=== PATIENT | male | born 1950 | race Caucasian/White ===

== ENCOUNTER 2017-03-26 14:30 | Emergency (ER) | payer BC, MEDICARE ==
--- NOTE | 2017-03-26 15:37 | RAD ---
THREE VIEWS OF THE LEFT FOOT: 03/26/17 INDICATION: Fall down stairs with left foot injury. FINDINGS: There is a comminuted, mildly displaced fifth metatarsal base fracture. No additional acute fracture is evident. There is scattered osteoarthrosis. There is diffuse osteopenia. IMPRESSION: Fifth metatarsal base fracture. POS: [facility]
== END 2017-03-26 15:50 | disposition home or self-care (01) ==
LOC: ERS 14:30
DX: S92.352A Displaced fracture of fifth metatarsal bone, left foot, initial encounter for closed fracture (principal); E78.5 Hyperlipidemia, unspecified; K74.60 Unspecified cirrhosis of liver; F41.9 Anxiety disorder, unspecified; F17.220 Nicotine dependence, chewing tobacco, uncomplicated; F17.290 Nicotine dependence, other tobacco product, uncomplicated; Z79.899 Other long term (current) drug therapy; W10.9XXA Fall (on) (from) unspecified stairs and steps, initial encounter

== ENCOUNTER 2018-02-22 10:12 | Emergency (ER) | payer BC, MEDICARE ==
[2018-02-22 11:42] LABS: Band 25 % (5-11); Hemoglobin 14.9 g/dL (14.0-18.0); Lymphocytes 13 % (21-51); MDiff Complete? YES; Mean Corpuscular HGB CONC 34.6 g/dL (32.0-36.0); Mean Corpuscular Hemoglobin 34.1 pg (27.0-31.0); Mean Corpuscular Volume 98.4 fL (78.0-98.0); Mean Platelet Volume 9.1 fL (7.4-10.4); Metamyelocyte 1 % (0-0); Monocytes 4 % (0-10); Neutrophil 55 % (42-75); PLT Morphology Comment Appears Decreased; Platelet Count 98 thou/uL (130-400); RBC Distribution Width 11.5 % (11.5-14.5); Red Blood Cell (RBC) Count 4.37 mill/uL (4.70-6.10); Vacuoles SLIGHT
[2018-02-22] MEDS ORDERED: Clindamycin/D5W 900 mg/50 ml Premix Bag ONE (11:50)
[2018-02-22] MEDS ORDERED: Clindamycin/D5W 600 mg/50 ml Premix Bag ONE (11:54)
[2018-02-22 11:58] LABS: Albumin 3.8 g/dL (3.4-4.8)
[2018-02-22 12:00] LABS: Calcium 9.3 mg/dL (7.8-10.44); Chloride 104 mmol/L (98-107); Potassium 4.1 mmol/L (3.5-5.1); Sodium 134 mmol/L (136-145)
[2018-02-22 12:01] LABS: Globulin 3.1 g/dL (2.4-3.5); Glucose 96 mg/dL (80-115); Protein, Total 6.9 g/dL (5.8-8.1)
[2018-02-22 12:02] LABS: Anion Gap 11 mmol/L (10-20); Carbon Dioxide 23 mmol/L (23-31)
[2018-02-22 12:03] LABS: Bilirubin, Total 1.5 mg/dL (0.2-1.2)
[2018-02-22 12:04] LABS: Alkaline Phosphatase 46 U/L (40-150); Calc. Creatinine Clearance 0 mL/min (70-130); Estimated GFR-MDRD 89
[2018-02-22 12:05] LABS: BUN (Urea Nitrogen) 12 mg/dL (8.4-25.7)
[2018-02-22 12:06] LABS: AST (SGOT) 27 U/L (5-34)
[2018-02-22 12:07] LABS: ALT (SGPT) 28 U/L (8-55)
--- NOTE | 2018-02-22 13:06 | ULT ---
RIGHT LOWER EXTREMITY DOPPLER VENOUS ULTRASOUND: Date: 02/22/18 INDICATION: History of right lower extremity pain. TECHNIQUE: Clemons scale, color Doppler, and vascular duplex with spectral analysis was performed of the deep venou s structures of the right lower extremity. The common femoral vein, superficial femoral vein, proxima l greater saphenous vein, proximal greater profunda vein, popliteal, and posterior tibial veins were assessed. FINDINGS: There is appropriate compression, flow, and augmentation seen within the deep venous structures of th e right lower extremity. IMPRESSION: No evidence of deep venous thrombosis in the right lower extremity. POS: [facility]
== END 2018-02-22 13:16 | disposition home or self-care (01) ==
LOC: ERS 10:12
DX: L03.115 Cellulitis of right lower limb (principal); E78.5 Hyperlipidemia, unspecified; F41.9 Anxiety disorder, unspecified; F17.220 Nicotine dependence, chewing tobacco, uncomplicated; Z79.899 Other long term (current) drug therapy
CPT/HCPCS: 36415; 80053; 85025; 96365; J3490

== ENCOUNTER 2018-02-24 10:38 | Observation (INO) | payer BC, MEDICARE ==
[2018-02-24] MEDS ORDERED: Ibuprofen 200 MG TAB PO PRN (10:58)
[2018-02-24] MEDS ORDERED: Vancomycin HCl 1 GM in Premix Bag 1 BAG IVPB SCH (11:00)
[2018-02-24 12:07] LABS: Bilirubin Negative (Negative); Blood, Urine Negative (Negative); Clarity CLEAR (Clear); Glucose, Urine (Dipstick) Negative (Negative); Leukocyte Trace (Negative); Nitrite Negative (Negative); Protein, Urine (Dipstick) Negative (Neg-Trace); Specific Gravity, Urine 1.015 (1.002-1.036); Urobilinogen 0.2 mg/dL (0.2-1.0); pH, Urine 5.5 (5.0-9.0)
[2018-02-24 12:12] LABS: ALT (SGPT) 20 U/L (8-55); AST (SGOT) 20 U/L (5-34); Albumin 3.6 g/dL (3.4-4.8); Alkaline Phosphatase 45 U/L (40-150); Anion Gap 13 mmol/L (10-20); BUN (Urea Nitrogen) 14 mg/dL (8.4-25.7); Bilirubin, Total 1.1 mg/dL (0.2-1.2); Calc. Creatinine Clearance 0 mL/min (70-130); Calcium 8.9 mg/dL (7.8-10.44); Carbon Dioxide 19 mmol/L (23-31); Chloride 107 mmol/L (98-107); Estimated GFR-MDRD Greater than 90; Glucose 94 mg/dL (80-115); Potassium 4.2 mmol/L (3.5-5.1); Protein, Total 6.6 g/dL (5.8-8.1); Sodium 135 mmol/L (136-145)
--- NOTE | 2018-02-24 12:15 | RAD ---
THREE VIEWS RIGHT FORELEG: Indication: Right leg cellulitis. FINDINGS: There is prominent soft tissue swelling involving the medial and distal aspect of the right thigh as well as circumferentially enveloping the right foreleg. No radiopaque foreign body is evident. No acu te fracture is evident. IMPRESSION: Soft tissue swelling of the right leg. No acute fracture or subluxation. No radiopaque foreign body n oted. POS: [facility]
[2018-02-24 12:16] LABS: Bacteria/HPF None Seen HPF (None Seen); Hyaline Casts/LPF 0-3 HYALINE CAST LPF (0-3 Hyaline); RBC/HPF 0-3 HPF (0-3); Squamous Epithelial None Seen HPF (0-3); WBC/HPF 0-3 HPF (0-3)
[2018-02-24 12:17] LABS: #Eosinphils 0.2 thou/uL (0.0-0.7); #Lymphocytes 1.3 thou/uL (1.20-3.40); #Monocytes 0.6 thou/uL (0.11-0.59); #Neutrophils 3.5 thou/uL (1.40-6.50); %Basophils 0.4 % (0.0-1.0); %Eosinophils 3.5 % (0.0-10.0); %Lymphocytes 23.5 % (21.0-51.0); %Monocytes 10.6 % (0.0-10.0); Hemoglobin 12.7 g/dL (14.0-18.0); Mean Corpuscular HGB CONC 35.2 g/dL (32.0-36.0); Mean Corpuscular Hemoglobin 34.4 pg (27.0-31.0); Mean Corpuscular Volume 97.7 fL (78.0-98.0); Mean Platelet Volume 8.1 fL (7.4-10.4); PLT Morphology Comment Appears Decreased; Platelet Count 110 thou/uL (130-400); RBC Distribution Width 11.4 % (11.5-14.5); RBC Morphology Normal; White Blood Cell (WBC) Count 5.7 thou/uL (4.8-10.8)
--- NOTE | 2018-02-24 12:17 | RAD ---
THREE VIEWS RIGHT FOOT: Indication: Right lower extremity cellulitis. Comparison: None. FINDINGS: Lisfranc alignment is preserved. There is scattered osteoarthrosis of the midfoot and forefoot. No ac jon fracture or subluxation is evident. No radiopaque foreign body is noted. There is soft tissue swe lling involving the foreleg as well as the ankle. IMPRESSION: 1. Soft tissue swelling of the distal right foreleg, ankle and foot. 2. No radiopaque foreign body. 3. No acute fracture or subluxation. POS: [facility]
[2018-02-24] MEDS: Acetaminophen/Codeine 30-300mg Tablet PO PRN ×2 (12:37→19:33)
[2018-02-24] MEDS ORDERED: Vancomycin HCl 1.5 GM in Sodium Chloride 0.9% 250 ML 300 ML IVPB SCH (15:00)
[2018-02-24] MEDS: cefTRIAXone\\ROCEPHIN 1 GM in Sodium Chloride 0.9% 100 ML IVPB SCH (15:50)
[2018-02-24] MEDS: Atorvastatin Calcium 40 MG TAB PO SCH (19:35)
--- NOTE | 2018-02-24 21:20 | CON ---
DATE OF CONSULTATION: 02/24/2018 REASON FOR CONSULTATION: Cellulitis. HISTORY OF PRESENT ILLNESS: A 67-year-old patient who has a history of hyperlipidemia and liver cirrhosis and developed rapidly progressive inflammatory process right leg, came to the emergency room, has been admitted. Some subjective fever. No headaches, no visual symptoms, sore throat, odynophagia, dysphagia, no cough or sputum production or chest pain, no abdominal pain. PAST MEDICAL HISTORY: Includes liver cirrhosis, probably secondary to steatohepatitis, inguinal ventral hernia with prior repair, laparotomy with some form of bowel surgery, which required colostomy which was taken down later on, appendectomy, left shoulder replacement and bilateral hip replacements. SOCIAL HISTORY: Current smoker, never used alcoholic beverages. FAMILY HISTORY: Noncontributory. ALLERGIES: BACTRIM. CURRENT MEDICATIONS: Lipitor, lactulose, Protonix, vancomycin. PHYSICAL EXAMINATION: VITAL SIGNS: Temperature max 97.6, blood pressure 110/56, pulse 58, respirations 16, O2 sat 100. SKIN: Shows the area of cellulitis, right leg, was distributed with areas of erythema and distributed in a circumferential area below the right knee towards the foot before the patch-like distribution. No blisters noted. Quite homogeneous area of involvement. Underlying this, there seems to be evidence of stasis changes in the right and left lower extremities. No lymphadenopathy. HEENT: Noncontributory. NECK: Supple. LUNGS: Symmetric. Clear breath sounds. HEART: S1, S2, regular rate. No S3, S4. ABDOMEN: Soft, not distended or tender. No ascites. No bladder distention. Two areas of scabbing, which patient ascribes to stitches, they are trying to come out from his prior surgeries. EXTREMITIES: Pulses 1+ in popliteals and dorsalis pedis, 2+ edema in the right leg. NEUROLOGIC: Nonfocal including cognitive function. LABORATORY DATA: White cell count 5.7, hemoglobin 12.7, platelets 110 with normal differential. Sodium 135, creatinine 0.81. Liver profile normal. Albumin 3.6. Urinalysis was essentially normal. I do not see any cultures here and there is a tibia fibula x-ray, which demonstrated no areas of bone abnormalities. Vascular ultrasound with no evidence of deep vein thrombosis. ASSESSMENT: Liver cirrhosis, probably secondary to steatohepatitis with evidence of acute cellulitis, right leg. DISCUSSION: The most likely scenario is beta hemolytic streptococcus cellulitis. In patients with liver cirrhosis, gram negative lauren sometimes can play a role as well. We will transition patient to Rocephin, which should cover both possibilities. Discontinue remainder antimicrobials, eventual transition to oral Keflex. Once there is improvement, we will do discharge planning. Treat with Keflex for about 2 weeks and after that suppressive therapy with Pen-Vee K 250 twice daily for at least 6 months, compressive stockings to be worn for the next few months. MTDD
[2018-02-25] MEDS ORDERED: Vancomycin HCl 1.75 GM in Sodium Chloride 0.9% 500 ML IVPB SCH (01:00)
--- NOTE | 2018-02-25 03:04 | HP ---
DATE OF OBSERVATION: 02/24/2018 CHIEF COMPLAINT: Right lower leg cellulitis. HISTORY OF PRESENT ILLNESS: Patient is a 67-year-old male whose leg actually began to swell 5 days ago. He finally went to the emergency room at [facility] on 02/22/2018. There, he was evaluated and the redness, swelling, tenderness were noted and despite request to be put in as an inpatient for IV therapy. He was placed on clindamycin 300 mg t.i.d. and sent home. Since that time, his leg has continued to swell more in the heat, tenderness, and erythema have increased and his brings him in with day of observation for reevaluation since he is failing outpatient treatment on oral antibiotics. In the office, his leg is noted to be red, swollen, hot, tender. There is no weeping or open drainage. He is afebrile, but the area involved is extensive involving the whole top of the foot, all the way up to his knee at this point. There is no streaking noted. He has failed outpatient therapy. We will be admitted for IV therapy. We will also get Infectious Disease consult and hopefully be able to arrange eventual outpatient completion of his treatment. PAST MEDICAL AND SURGERY HISTORY: Complicated, fully decompensated cirrhotic in 2006, history of MRSA Staph infection, Dyslipidemia, Surgical Hx: bilateral hip replacements, laparotomies x2, colonoscopy with takedown, appendectomy, right shoulder replacement, I&D of ventral hernia, and ventral hernia repair due to ruptured bowel Psych: The patient has a psychiatric history of anxiety. SOCIAL HISTORY: He is , currently uses tobacco in a pipe form. Denies alcohol use or illicit drug use. ALLERGIES: BACTRIM, SULFA, and TRIMETHOPRIM. MEDICATIONS ON ADMISSION: Include iron 18 mg a day, lactulose 30 mL p.o. daily , ibuprofen 600 mg b.i.d., multiple vitamin, Protonix 40 mg daily, spironolactone 50 mg daily, Xanax 0.5 mg b.i.d., Zoloft 100 mg at bedtime, and atorvastatin 20 mg at bedtime. REVIEW OF SYSTEMS: Patient's report subjective fever, fatigue, and malaise generally. HEENT: Negative for eye discharge. No sores and ear, nose, or throat or pain. Chest: No trouble with cough or dyspnea. Cardiovascular: Denies palpitations or chest pain. GI: Denies nausea, vomiting, or diarrhea. Musculoskeletal: Significant for the right lower extremity edema, erythema, heat, tenderness with associated myalgias all over his body. Skin: The aforementioned hot, red, inflammation of the right lower extremity. Neurologic : No trouble with paresthesias, or hypesthesia. Genitourinary: No blood in urine or stool or polyuria or dysuria. Psychiatric: No trouble with mentation , depression, or anxiety at this time. PHYSICAL EXAMINATION: At the time of admission, VITAL SIGNS: Blood pressure 110/67, temperature 97, pulse 61, weight is 262 pounds. He is 5 foot 11 inches tall. GENERAL: This is a large obese male, alert, oriented, and cooperative. HEENT: Normocephalic and atraumatic. Pupils equal, round, and reactive to light. Extraocular muscles demonstrated to be intact. Pharynx clear. NECK: Supple, trachea midline. CHEST: Clear to auscultation. HEART: Regular rate and rhythm, no murmur. ABDOMEN: With diffuse scarring noted and some wound still healing with eschar noted in the central ventral supraumbilical area. Evidence of large previous hernia noted. : Deferred. EXTREMITIES: Right lower extremity with [id number] heat, erythema, tenderness, swelling, painful range of motion. Other extremities without clubbing, cyanosis, or edema. SKIN: With the aforementioned changes in the right lower extremity. The remainder of his skin is unremarkable. NEUROLOGIC: Cranial nerves are intact. Gait painful, cerebellar function intact. Sensory exam is intact. Mental status is at baseline, nonfocal, and intact. LABORATORY AND X-RAY FINDINGS: WBCs are 5.7, hemoglobin 12.7, hematocrit 36.2 with platelets at 110. Sodium 135, potassium 4.2, chloride 107, CO2 of 19, BUN 14, creatinine 0.81 with a GFR greater than 90, glucose 94. Liver functions unremarkable. Urinalysis trace leukocyte esterase, otherwise unremarkable. X- rays of the right lower extremity, failed to show any subcutaneous gas, but to confirm circumferential edema of the soft tissues. ASSESSMENT: 1. Right lower extremity cellulitis, failure to outpatient treatment. 2. Long history of multiple surgeries with complications and now history of methicillin-resistant Staphylococcus aureus positive for Staph. PLAN: Will be IV vancomycin 1 gram q.12. Pharmacy will do levels and adjust dosage as needed. Infectious Disease consultation to see if any additional antibiotics may be necessary. Case management consultation to help arrange outpatient treatment as such therapy and Wound Care consult to document the status of the wound and improvement. Pain management as needed and serial reevaluation. MTDD
[2018-02-25] MEDS: Acetaminophen/Codeine 30-300mg Tablet PO PRN ×2 (04:07→20:52)
[2018-02-25] MEDS: Spironolactone 25 MG TAB PO SCH (08:07)
[2018-02-25 09:16] LABS: #Eosinphils 0.3 thou/uL (0.0-0.7); #Lymphocytes 1.7 thou/uL (1.20-3.40); #Monocytes 0.6 thou/uL (0.11-0.59); #Neutrophils 3.5 thou/uL (1.40-6.50); %Basophils 0.8 % (0.0-1.0); %Eosinophils 4.4 % (0.0-10.0); %Lymphocytes 27.5 % (21.0-51.0); %Monocytes 10.2 % (0.0-10.0); %Neutrophils 57.2 % (42.0-75.0); Mean Corpuscular HGB CONC 35.7 g/dL (32.0-36.0); Mean Corpuscular Volume 97.9 fL (78.0-98.0); Mean Platelet Volume 8.1 fL (7.4-10.4); Platelet Count 130 thou/uL (130-400); RBC Distribution Width 11.3 % (11.5-14.5); Red Blood Cell (RBC) Count 3.73 mill/uL (4.70-6.10); White Blood Cell (WBC) Count 6.1 thou/uL (4.8-10.8)
[2018-02-25 09:32] LABS: Anion Gap 12 mmol/L (10-20); BUN (Urea Nitrogen) 9 mg/dL (8.4-25.7); Calc. Creatinine Clearance 156 mL/min (70-130); Calcium 8.9 mg/dL (7.8-10.44); Carbon Dioxide 25 mmol/L (23-31); Chloride 106 mmol/L (98-107); Estimated GFR-MDRD Greater than 90; Glucose 95 mg/dL (80-115); Potassium 3.8 mmol/L (3.5-5.1); Sodium 139 mmol/L (136-145)
[2018-02-25 13:33] VITALS: BMI 38.0
[2018-02-25] MEDS: cefTRIAXone\\ROCEPHIN 1 GM in Sodium Chloride 0.9% 100 ML IVPB SCH (16:31)
[2018-02-25] MEDS: Atorvastatin Calcium 40 MG TAB PO SCH (20:49)
[2018-02-26] MEDS: Acetaminophen/Codeine 30-300mg Tablet PO PRN ×2 (10:06→18:44)
[2018-02-26] MEDS: Spironolactone 25 MG TAB PO SCH (10:07)
[2018-02-26] MEDS ORDERED: Cephalexin 250 MG CAP PO SCH ×2 (15:30→21:00)
--- NOTE | 2018-02-26 19:56 | PRG ---
DATE OF SERVICE: 02/26/2018 SUBJECTIVE: Feeling better, about 50% improvement in cellulitis, right leg. No obvious adverse reac tions. PHYSICAL EXAMINATION: VITAL SIGNS: Normal. LUNGS: Clear. CARDIOVASCULAR: S1, S2, regular rate. MUSCULOSKELETAL: The right leg with about 50% reduction in the amount of cellulitis. LABORATORY DATA: White cell count 6.1, hemoglobin 13. Chemistry not remarkable. Microbiology with negative blood cultures. ASSESSMENT, DISCUSSION AND PLAN: Liver cirrhosis secondary to steatohepatitis with his acute celluli tis of right leg. The patient is currently on Rocephin. I would advise tomorrow to discharge on ora l Keflex 500 four times daily for 14 days. Compression stockings.
[2018-02-26] MEDS: Atorvastatin Calcium 40 MG TAB PO SCH (20:33)
[2018-02-27 05:04] LABS: #Basophils 0.1 thou/uL (0.0-0.2); #Eosinphils 0.2 thou/uL (0.0-0.7); #Lymphocytes 1.9 thou/uL (1.20-3.40); #Monocytes 0.5 thou/uL (0.11-0.59); %Basophils 0.7 % (0.0-1.0); %Eosinophils 2.5 % (0.0-10.0); %Lymphocytes 24.7 % (21.0-51.0); %Monocytes 5.9 % (0.0-10.0); %Neutrophils 66.3 % (42.0-75.0); Hemoglobin 12.8 g/dL (14.0-18.0); Mean Corpuscular HGB CONC 36.3 g/dL (32.0-36.0); Mean Corpuscular Hemoglobin 35.5 pg (27.0-31.0); Mean Corpuscular Volume 97.8 fL (78.0-98.0); Mean Platelet Volume 7.9 fL (7.4-10.4); Platelet Count 161 thou/uL (130-400); RBC Distribution Width 11.3 % (11.5-14.5); Red Blood Cell (RBC) Count 3.61 mill/uL (4.70-6.10); White Blood Cell (WBC) Count 7.6 thou/uL (4.8-10.8)
[2018-02-27 05:13] LABS: Anion Gap 11 mmol/L (10-20); BUN (Urea Nitrogen) 11 mg/dL (8.4-25.7); Calc. Creatinine Clearance 167 mL/min (70-130); Calcium 8.8 mg/dL (7.8-10.44); Carbon Dioxide 25 mmol/L (23-31); Chloride 105 mmol/L (98-107); Estimated GFR-MDRD Greater than 90; Glucose 106 mg/dL (80-115); Potassium 3.8 mmol/L (3.5-5.1); Sodium 137 mmol/L (136-145)
[2018-02-27 07:27] VITALS: BP 135/82; TEMP 98.3
== END 2018-02-27 07:53 | disposition home or self-care (01) ==
LOC: 2SW 10:38
PROVIDERS: ADMIT Specialist; ATTEND Specialist
DX: L03.115 Cellulitis of right lower limb (principal); E78.5 Hyperlipidemia, unspecified; K74.60 Unspecified cirrhosis of liver; K75.81 Nonalcoholic steatohepatitis (NASH); F17.200 Nicotine dependence, unspecified, uncomplicated; Z79.899 Other long term (current) drug therapy; Z88.2 Allergy status to sulfonamides
CPT/HCPCS: 36415; 80048; 80053; 81003; 81015; 85025; 87040; 87149; 96365; 96366; 96367; A4216; G0378; J0696; J3370; J7050; J7620

== ENCOUNTER 2018-09-03 15:27 | Emergency (ER) | payer BC, MEDICARE ==
[2018-09-03 15:51] LABS: #Eosinphils 0.2 thou/uL (0.0-0.7); #Lymphocytes 1.4 thou/uL (1.20-3.40); #Monocytes 0.7 thou/uL (0.11-0.59); %Basophils 0.6 % (0.0-1.0); %Eosinophils 3.6 % (0.0-10.0); %Lymphocytes 22.7 % (21.0-51.0); %Monocytes 10.4 % (0.0-10.0); %Neutrophils 62.6 % (42.0-75.0); Hemoglobin 15.3 g/dL (14.0-18.0); Mean Corpuscular HGB CONC 34.8 g/dL (32.0-36.0); Mean Corpuscular Hemoglobin 34.1 pg (27.0-31.0); Mean Platelet Volume 8.8 fL (7.4-10.4); Platelet Count 132 thou/uL (130-400); RBC Distribution Width 11.5 % (11.5-14.5); Red Blood Cell (RBC) Count 4.49 mill/uL (4.70-6.10); White Blood Cell (WBC) Count 6.3 thou/uL (4.8-10.8)
[2018-09-03 17:28] LABS: ALT (SGPT) 19 U/L (8-55); AST (SGOT) 33 U/L (5-34); Albumin 4.1 g/dL (3.4-4.8); Alkaline Phosphatase 41 U/L (40-150); Anion Gap 15 mmol/L (10-20); BUN (Urea Nitrogen) 8 mg/dL (8.4-25.7); Bilirubin, Total 1.1 mg/dL (0.2-1.2); Calc. Creatinine Clearance 0 mL/min (70-130); Calcium 9.5 mg/dL (7.8-10.44); Carbon Dioxide 24 mmol/L (23-31); Chloride 104 mmol/L (98-107); Estimated GFR-MDRD Greater than 90; Globulin 2.9 g/dL (2.4-3.5); Glucose 101 mg/dL (80-115); Potassium 4.3 mmol/L (3.5-5.1); Sodium 139 mmol/L (136-145)
--- NOTE | 2018-09-03 18:39 | CT ---
CT ABDOMEN AND PELVIS WITH IV CONTRAST 09/03/18 HISTORY: Epigastric abdominal pain/pressure and bloating since yesterday. History of cirrhosis. COMPARISON: 03/21/17. FINDINGS: The lung bases are clear. The stomach is distended and fluid filled. Dilated loops of small bowel are seen. The loops of small bowel measuring up to 4.5 cm in diameter and are predominantly fluid filled. An abrupt transition zon e is not visualized, but there are more decompressed loops of small bowel with gradual tapering to decompressed loops of small bowel. Suggestive of partial small bowel obstruction. There is colonic diverticulosis. Postsurgical changes with anastomosis at the rectosigmoid junction a re present. Superior pole right renal cyst is again present. The liver, spleen, pancreas, bilateral adrenal glands, and left kidney demonstrate a normal CT appear ance. The urinary bladder and pelvic structures are mostly obscured due to significant artifact from bilate ral total hip prostheses. Vascular calcifications are in the abdominal aorta involving the iliac garrett julio. Multilevel degenerative changes are seen throughout the spine with severe end plate degenerative fuentes ges at the L3-4 level, stable from prior exam. The fluid in the subcutaneous soft tissues in the midline upper pelvis are no longer visualized. Ther e is area of scarring in this region related to prior postsurgical change. IMPRESSION: 1. Evidence for partial small bowel obstruction. There is mild edema and fluid within the centra l mesentery. There are postsurgical changes in the lower left pelvis involving loops of small bowel w ith postsurgical changes involving the rectosigmoid junction as well. 2. Right renal cyst. POS: [facility]
--- NOTE | 2018-09-05 12:04 | EKG ---
Test Reason : Blood Pressure : / mmHG Vent. Rate : 069 BPM Atrial Rate : 069 BPM P-R Int : 190 ms QRS Dur : 096 ms QT Int : 398 ms P-R-T Axes : 044 -10 026 degrees QTc Int : 426 ms Normal sinus rhythm Normal ECG Confirmed by COOPER POPE DO ([id number]), editor magazine LINDA SAL ([id number]) on 09/05/2018 12:04:15 PM Referred By: Confirmed By:COOPER POPE DO
== END 2018-09-03 19:04 | disposition home or self-care (01) ==
LOC: ERS 15:27
DX: K59.00 Constipation, unspecified (principal); R14.0 Abdominal distension (gaseous); E78.5 Hyperlipidemia, unspecified; F41.9 Anxiety disorder, unspecified; F17.220 Nicotine dependence, chewing tobacco, uncomplicated; Z79.899 Other long term (current) drug therapy
CPT/HCPCS: 74018; 74177; 80048; 80053; 82550; 84484; 85025; 93005; J2060; J2405; S0028

== ENCOUNTER 2018-09-05 12:12 | Inpatient (IN) | payer BC, MEDICARE ==
[2018-09-05] MEDS ORDERED: Ondansetron PF 4 MG/2 ML Vial ONE (14:15)
[2018-09-05 14:19] LABS: #Basophils 0.1 thou/uL (0.0-0.2); #Eosinphils 0.2 thou/uL (0.0-0.7); #Lymphocytes 1.7 thou/uL (1.20-3.40); #Monocytes 0.6 thou/uL (0.11-0.59); #Neutrophils 3.8 thou/uL (1.40-6.50); %Basophils 1.5 % (0.0-1.0); %Eosinophils 3.8 % (0.0-10.0); %Lymphocytes 26.3 % (21.0-51.0); %Monocytes 9.1 % (0.0-10.0); %Neutrophils 59.4 % (42.0-75.0); Hemoglobin 14.3 g/dL (14.0-18.0); Mean Corpuscular HGB CONC 34.4 g/dL (32.0-36.0); Mean Corpuscular Volume 98.8 fL (78.0-98.0); Mean Platelet Volume 8.3 fL (7.4-10.4); Platelet Count 132 thou/uL (130-400); RBC Distribution Width 11.4 % (11.5-14.5); Red Blood Cell (RBC) Count 4.21 mill/uL (4.70-6.10); White Blood Cell (WBC) Count 6.3 thou/uL (4.8-10.8)
[2018-09-05] MEDS ORDERED: Lidocaine Viscous Sol 2% 15 ml UD Cup ONE (14:25)
[2018-09-05] MEDS ORDERED: Benzocaine 20% Spray 60 ML CAN ONE (14:29)
[2018-09-05 14:37] LABS: Anion Gap 15 mmol/L (10-20); BUN (Urea Nitrogen) 6 mg/dL (8.4-25.7); Calc. Creatinine Clearance 0 mL/min (70-130); Calcium 9.4 mg/dL (7.8-10.44); Carbon Dioxide 22 mmol/L (23-31); Chloride 105 mmol/L (98-107); Estimated GFR-MDRD Greater than 90; Glucose 101 mg/dL (80-115); Potassium 3.7 mmol/L (3.5-5.1); Sodium 138 mmol/L (136-145)
--- NOTE | 2018-09-05 15:49 | RAD ---
ABDOMEN ONE VIEW 09/05/18 HISTORY: NG tube placement for position evaluation. NG tube is noted with the tip extending into the stomach and the side hole is right at the GE junctio n region. This could probably be advanced another 5 to 8 cm so the side hole will completely enter th e stomach. Abnormally dilated small bowel loops, evidence for bowel obstruction. IMPRESSION: NG tube with the tip in the stomach and the side hole at the GE junction region. This could be advanc ed somewhat more completely into the stomach. Abnormally dilated small bowel. Evidence for small gris l obstruction. POS: [facility]
[2018-09-05 17:02] VITALS: BMI 36.1
[2018-09-05] MEDS ORDERED: Dextrose 5% in Water 1,000 ML IV PRN (23:28)
[2018-09-05] MEDS ORDERED: Ondansetron PF 4 MG/2 ML Vial IVP PRN (23:28)
[2018-09-05] MEDS ORDERED: Lorazepam 2 MG/ML VIAL SLOW IVP PRN (23:28)
[2018-09-05] MEDS ORDERED: Morphine 4 MG/ML VIAL SLOW IVP PRN ×2 (23:28)
[2018-09-05] MEDS ORDERED: hydrALAZINE 20 MG/ML VIAL SLOW IVP PRN (23:28)
[2018-09-05] MEDS ORDERED: Dextrose 50% Abboject 50 ML SYRINGE SLOW IVP PRN (23:28)
[2018-09-05] MEDS ORDERED: Promethazine HCl 25 MG/ML VIAL IM PRN (23:28)
[2018-09-06] MEDS: D5 1/2 NS w/20 mEq KCL 1,000 ML IV SCH ×4 (00:49→21:31)
[2018-09-06] MEDS: Nicotine 14 MG PATCH TD SCH (00:50)
[2018-09-06] MEDS: Famotidine/PF 20 mg/2ml Vial SLOW IVP SCH ×2 (08:47→21:30)
--- NOTE | 2018-09-06 09:17 | RAD ---
ABDOMEN 1 VIEW: Date: 09/06/18 HISTORY: Follow-up small bowel obstruction. COMPARISON: 09/05/18. FINDINGS: There is some gas and minimal fecal material throughout the colon. NG tube is in place. There are shannon e minimally dilated loops of small bowel, but less dilated and less distended than on the prior study . IMPRESSION: Persistent mildly dilated and distended small bowel loops, but showing definite improvement. Continue short-term follow-up. POS: [facility]
--- NOTE | 2018-09-06 23:15 | HP ---
CHIEF COMPLAINT: Abdominal pain, partial bowel obstruction. HISTORY OF PRESENT ILLNESS: Mr. Elias is a very pleasant 68-year-old white male well known to myself. I performed a complex giant ventral abdominal hernia repair with component separation and mesh placement with panniculectomy in 04/2014. In 05/2014, he was admitted to the hospital with what appeared to be a gallbladder attack. He had elevated liver function tests at that time and underwent an ERCP. Since he was shortly after his big surgery, wanted to avoid any other surgeries such as gallbladder surgery. He felt better after his ERCP and sphincterotomy and was discharged home and has had no subsequent gallbladder related problems. He developed sensation of pressure and pain in his upper abdomen about 4 or 5 days ago. He presented to the emergency room at that time. He had no episodes of nausea or vomiting. He did have dilated loops of small bowel. He also had some evidence of constipation. I recommended discharge home from the emergency room with magnesium citrate and MiraLAX at that time. He tells me that he took the magnesium citrate, had several bowel movements and felt better for a couple of days. Yesterday, he redeveloped his sensation of upper abdominal pain. He did not vomit. He re-presented to the emergency room. At that time, I evaluated his CT scan and felt that it was consistent with some degree of small bowel obstruction. Examination within the upper abdomen revealed some swirling of the mesenteric vessels and there were loops of small bowel that were almost 5 cm in diameter. So yesterday when I saw him in the emergency room, I recommended admission with placement of nasogastric tube to allow small bowel rest and decompression. He has had his nasogastric tube in place for almost 24 hours now. He tells me his belly feels better. He has been walking regularly and tolerating ice chips. He has had a total of mL of nasogastric drainage since he was admitted and he has been urinating regularly. PAST MEDICAL HISTORY: 1. Morbid obesity. 2. History of alcoholism. 3. History of cirrhosis. 4. History of gout. PAST SURGICAL HISTORY: 1. Appendectomy in 2009. 2. Vasectomy. 3. Bilateral hip replacement. 4. Sigmoid colectomy for perforated diverticulitis. 5. Colostomy creation and subsequent colostomy reversal. 6. Open ventral incisional hernia repair with component separation, mesh placement, and panniculectomy in 04/2014. 7. Shoulder surgery couple of years ago. MEDICATIONS: 1. Spironolactone. 2. Celebrex. 3. Lactulose. 4. Multivitamin. 5. Iron. ALLERGIES: SULFA MEDICATIONS. PRIMARY CARE PHYSICIAN: Dr. Marc Navarro. PERSONAL AND SOCIAL HISTORY: He is . He smokes a pipe and dips about one can of snuff per week. He denies alcohol or drug use. He has not had alcohol in 12 years. He is retired. He has 3 children. REVIEW OF SYSTEMS: Otherwise unremarkable. FAMILY HISTORY: Noncontributory. PHYSICAL EXAMINATION: VITAL SIGNS: Temperature is 98.1, pulse 57, and blood pressure 125/81. GENERAL: A well-developed, well-nourished, pleasant white male resting in bed, in no acute distress. He is alert and oriented x3. HEAD, EYES, EARS, NOSE, AND THROAT: Unremarkable. NECK: Supple without mass or tenderness. LUNGS: Clear to auscultation throughout. CARDIAC: Regular rate and rhythm without murmur. ABDOMEN: Soft, nontender, and nondistended. He has well-healed incisions on his abdomen. He has no evidence of hernia or focal tenderness. Bowel sounds are present and normoactive. RECTAL: Deferred at this time. LABORATORY DATA: His CBC yesterday revealed white blood cell count of 6.3, hemoglobin 14, and platelet count 132. Chemistry profile revealed essentially normal electrolytes, normal renal function, and normal glucose. His liver function tests on the were all normal as well. ASSESSMENT: The patient has some degree of obstructive phenomena within his abdomen producing discomfort and bowel dilatation seen on CT scan. The hope is to resolve this with nonoperative management. Nasogastric tube has been placed and is functioning well, also decompressed stomach. I recommended this for at least 24 hours. Tomorrow morning, I have requested a Gastrografin small-bowel study to evaluate his small bowel and check for residual dilatation and passage of contrast. Further management will depend upon findings of this study. Job ID: [id number]
[2018-09-07] MEDS: Nicotine 14 MG PATCH TD SCH (01:00)
[2018-09-07] MEDS: Famotidine/PF 20 mg/2ml Vial SLOW IVP SCH (08:20)
[2018-09-07] MEDS ORDERED: MD-Gastroview 120 ML BOT ONE (08:23)
[2018-09-07] MEDS: D5 1/2 NS w/20 mEq KCL 1,000 ML IV SCH ×2 (08:27→19:36)
--- NOTE | 2018-09-07 15:35 | RAD ---
SMALL BOWEL FOLLOW THROUGH: HISTORY: Bowel obstruction. FINDINGS: [employer] radiograph demonstrates bilateral hip arthroplasties. Suture material is seen in the pelvis. There is abnormal dilatation of the small bowel with dilated loops of mid small bowel seen. Gas is s een in the colon. There is an NG tube in good position. Gastrografin 750 mL was given orally. Overhead images were obtained. The stomach filled. The small bowel was moderately dilated. Over a 2-hour time period, the entire s mall bowel was visualized. Contrast was seen in the colon at 2 hours. The caliber of the small gris l did not significantly change after contrast reached the colon. A moderate amount of stool was seen in the ascending colon. IMPRESSION: Continued small bowel dilatation, possibly due to partial bowel obstruction. Contrast did reach the ascending colon by 2 hours. POS: [facility]
[2018-09-07 16:14] VITALS: BP 118/67; TEMP 97.4
--- NOTE | 2018-09-08 04:03 | DIS ---
DATE OF ADMISSION: 09/05/2018 DATE OF DISCHARGE: 09/07/2018 ADMISSION DIAGNOSIS: Small-bowel obstruction with abdominal pain. DISCHARGE DIAGNOSIS: Small-bowel obstruction with abdominal pain. OPERATIONS/PROCEDURES PERFORMED: None (imaging was obtained with a small bowel follow-through today using Gastrografin). ADMISSION HISTORY: The patient is a 68-year-old white male, who is known to myself from prior abdominal surgery. He presented with abdominal pain and evidence of a partial small-bowel obstruction. Nasogastric tube was placed and was functioning well. He was given bowel rest for a little over 24 hours and then this morning, a Gastrografin small-bowel follow-through was obtained. This showed that the contrast passed through uneventfully. It was in the colon by 2 hours. Shortly after that, he had numerous loose bowel movements. His nasogastric tube was removed and was started on a clear liquid diet. He has tolerated this nicely. He notes resolution of abdominal discomfort and feels well. Since admission, he has remained afebrile with normal vital signs. His laboratory examination upon admission was unremarkable and was not repeated. He is stable for discharge home at this time. I will see him in the future as needed. I instructed him to maintain a liquid diet for 48 hours and then advance his diet appropriately thereafter. There is no prescriptions and no followup with myself at this time. Job ID: [id number]
== END 2018-09-07 19:15 | disposition home or self-care (01) | DRG 390 ==
LOC: ERS 12:12 → SURG B 13:58
PROVIDERS: ADMIT Specialist; ATTEND Specialist
DX: K56.609 Unspecified intestinal obstruction, unspecified as to partial versus complete obstruction (principal)
CPT/HCPCS: 74018; 74177; 74250; 80048; 80053; 82550; 84484; 85025; 93005; 96361; 96374; J2060; J2405; Q9963; S0028

== ENCOUNTER 2018-11-23 19:43 | Inpatient (IN) | payer BC, MEDICARE ==
[2018-11-23 20:42] LABS: #Eosinphils 0.1 thou/uL (0.0-0.7); #Lymphocytes 1.2 thou/uL (1.20-3.40); #Monocytes 0.5 thou/uL (0.11-0.59); #Neutrophils 4.3 thou/uL (1.40-6.50); %Basophils 0.6 % (0.0-1.0); %Eosinophils 1.8 % (0.0-10.0); %Lymphocytes 18.8 % (21.0-51.0); %Monocytes 8.1 % (0.0-10.0); %Neutrophils 70.6 % (42.0-75.0); Hemoglobin 12.1 g/dL (14.0-18.0); Mean Corpuscular HGB CONC 34.2 g/dL (32.0-36.0); Mean Corpuscular Hemoglobin 34.1 pg (27.0-31.0); Mean Corpuscular Volume 99.8 fL (78.0-98.0); Mean Platelet Volume 8.6 fL (7.4-10.4); Platelet Count 97 thou/uL (130-400); RBC Distribution Width 11.8 % (11.5-14.5); Red Blood Cell (RBC) Count 3.54 mill/uL (4.70-6.10); White Blood Cell (WBC) Count 6.1 thou/uL (4.8-10.8)
--- NOTE | 2018-11-23 21:19 | CT ---
CT BRAIN: HISTORY: Cirrhosis. Liver failure. Syncope. COMPARISON: 12/12/2008 TECHNIQUE: Noncontrast enhanced CT images of the brain obtained from the base of the skull to the vertex. Brain and bone windows obtained. FINDINGS: Images demonstrate cortical atrophy, which is moderate to severe. This involves the frontal lobes an d cerebellum, less so involving the temporal lobes. There is gas seen in the paper wood cutter spaces bilaterally, as well as an abnormal pocket of gas seen in the central spinal canal, just posterior to the tip of the odontoid. I cannot exclude the possibilit y of gas in the neck or chest. Correlation with contrast enhanced CT of the chest and neck may be of use to further evaluate, if indicated. IMPRESSION: 1. No evidence of acute intracranial abnormalities. 2. Multiple pockets of soft tissue air/gas is present. POS: [facility]
[2018-11-23 21:53] LABS: Albumin 2.9 g/dL (3.4-4.8)
[2018-11-23 21:54] LABS: Chloride 114 mmol/L (98-107); Potassium 3.6 mmol/L (3.5-5.1); Sodium 141 mmol/L (136-145)
[2018-11-23 21:55] LABS: Calcium 7.6 mg/dL (7.8-10.44); Glucose 90 mg/dL (80-115)
[2018-11-23 21:56] LABS: Protein, Total 4.9 g/dL (5.8-8.1)
[2018-11-23 21:57] LABS: Anion Gap 12 mmol/L (10-20); Bilirubin, Total 0.7 mg/dL (0.2-1.2); Carbon Dioxide 19 mmol/L (23-31)
[2018-11-23 21:58] LABS: Alkaline Phosphatase 32 U/L (40-150)
[2018-11-23 21:59] LABS: BUN (Urea Nitrogen) 7 mg/dL (8.4-25.7); Calc. Creatinine Clearance 0 mL/min (70-130); Estimated GFR-MDRD Greater than 90
[2018-11-23 22:00] LABS: AST (SGOT) 13 U/L (5-34)
[2018-11-23 22:01] LABS: ALT (SGPT) 8 U/L (8-55); CK (CPK) 36 U/L (30-200)
[2018-11-23 22:24] LABS: Bilirubin Negative (Negative); Blood, Urine Negative (Negative); Clarity CLEAR (Clear); Glucose, Urine (Dipstick) Negative (Negative); Leukocyte Negative (Negative); Nitrite Negative (Negative); Protein, Urine (Dipstick) Negative (Neg-Trace); Specific Gravity, Urine 1.011 (1.002-1.036); Urobilinogen 0.2 mg/dL (0.2-1.0)
[2018-11-23] MEDS: Sodium Chloride 0.9% 1,000 ML IV SCH (23:41)
[2018-11-23 23:44] VITALS: BMI 33.8
[2018-11-23 23:49] LABS: Troponin I Less than 0.010 ng/mL (< 0.028)
[2018-11-24 03:15] LABS: Troponin I Less than 0.010 ng/mL (< 0.028)
[2018-11-24] MEDS: Sodium Chloride 0.9% 1,000 ML IV SCH ×5 (04:20→18:20)
[2018-11-24 09:24] LABS: #Basophils 0.1 thou/uL (0.0-0.2); #Eosinphils 0.1 thou/uL (0.0-0.7); #Lymphocytes 1.2 thou/uL (1.20-3.40); #Monocytes 0.4 thou/uL (0.11-0.59); #Neutrophils 3.1 thou/uL (1.40-6.50); %Basophils 1.3 % (0.0-1.0); %Eosinophils 2.5 % (0.0-10.0); %Lymphocytes 24.4 % (21.0-51.0); %Monocytes 8.2 % (0.0-10.0); %Neutrophils 63.6 % (42.0-75.0); Hemoglobin 12.6 g/dL (14.0-18.0); Mean Corpuscular HGB CONC 33.8 g/dL (32.0-36.0); Mean Corpuscular Hemoglobin 33.7 pg (27.0-31.0); Mean Corpuscular Volume 99.5 fL (78.0-98.0); Mean Platelet Volume 8.6 fL (7.4-10.4); Platelet Count 94 thou/uL (130-400); Red Blood Cell (RBC) Count 3.75 mill/uL (4.70-6.10); White Blood Cell (WBC) Count 4.9 thou/uL (4.8-10.8)
[2018-11-24 09:45] LABS: Anion Gap 9 mmol/L (10-20); BUN (Urea Nitrogen) 5 mg/dL (8.4-25.7); Calc. Creatinine Clearance 164 mL/min (70-130); Calcium 7.9 mg/dL (7.8-10.44); Carbon Dioxide 21 mmol/L (23-31); Chloride 115 mmol/L (98-107); Estimated GFR-MDRD Greater than 90; Glucose 85 mg/dL (80-115); Potassium 3.9 mmol/L (3.5-5.1); Sodium 141 mmol/L (136-145)
--- NOTE | 2018-11-24 11:38 | CT ---
CT Chest W Con History: [Pneumothorax. Syncopal episode.] Comparison: Chest radiograph 2017 Findings: Small right layering pleural effusion. No pericardial effusion. There is cholelithiasis. Bilateral gynecomastia. No pneumothorax. No effusion. No focal airspace consolidation. Mild bibasilar atelectatic changes. Right reversed total shoulder arthroplasty. No thoracic spine compression fracture. No acute displaced rib fracture. Clavicles are intact. Os acromiale on the right. Impression: 1. No pneumothorax. 2. No acute inflammatory process within the chest. 3. Cholelithiasis. 4. Heterogeneous attenuation of the liver likely artifactual due to the patient's arms being at her s ides. 5. Small perihepatic ascites is uncertain significance. Abdomen pelvis CT may be beneficial in this p atient if clinically warranted.
--- NOTE | 2018-11-24 12:06 | CT ---
Exam: POSTCONTRAST SOFT TISSUE NECK CT: HISTORY: Subcutaneous air noted on recent head CT. COMPARISON: None FINDINGS: Previously noted subcutaneous air in the right facial soft tissues has resolved. Visualized brain parenchyma is unremarkable. Prominence of the CSF spaces is once again noted and lik senia due to overall atrophy or subdural hygromas, incomplete evaluation on the current examination. Intact calvarium. Bilateral ocular lenses are appropriately located. Both globes are intact. Retrobulbar fat is preserv ed. Symmetric attenuation of the optic nerves and ocular rectus muscles Aerodigestive tract patent. No mucosal abnormality. Limited evaluation of the oral cavity due to dent al amalgam artifact. Midline fatty raphe of the tongue is preserved. Epiglottis has a normal caliber. Preepiglottic fat is preserved Effacement of the left piriform sinus likely due to benign apposition of mucosa. Direct visualization if clinically warranted. Symmetric attenuation of the parotid and submandibular glands. Symmetric attenuation of sternocleidomastoid muscle. No evidence of lymphadenopathy by size criteria. Atherosclerosis of the right carotid bifurcation and internal carotid artery is noted. Limited evalua tion due to technique. Cervical spine vertebral body height is maintained. No fracture. Varying degrees of central canal mayuri nosis and neural foraminal narrowing. Limited evaluation by technique Small bilateral effusions. Otherwise, visualized lung parenchyma and upper mediastinum are unremarkab le IMPRESSION: Resolution of previously noted gas in the right facial soft tissues. There is no evidence of subcutan eous emphysema or pneumothorax. Transcribed Date/Time: 11/24/2018 12:34 PM
--- NOTE | 2018-11-24 13:54 | HP ---
DATE OF OBSERVATION: Begins on 11/23/2018. CHIEF COMPLAINT: Multiple syncopal episodes, heat stroke, bradycardia, and dehydration. HISTORY OF PRESENT ILLNESS: The patient is a 68-year-old male, who was at a restaurant called [employer], and because they would not let him smoke his pipe indoors, he went out on the patio and spent several hours out there. He drank 2 O'Doul's and then began after a time frame to pass out and was found passed out down approximately 10 minutes. When EMS was called, they found him unresponsive, was finally able to arouse him and he was oriented x1. Initial blood pressure at the scene was 77/48. He was also noted to have a heart rate of 45. He was given fluid resuscitation on the way in, and on arrival to the emergency room, his pressure was able to systolically get into the 90s, but he remained bradycardic. In the emergency room, multiple liters of fluid were utilized to raise his blood pressure and finally obtain urine output. CT scan was ordered for altered mental status. It showed no acute findings, but did raise a suspicion of inappropriate soft tissue air in the upper chest and neck. PAST MEDICAL HISTORY: Significant for cirrhosis of the liver, hepatic encephalopathy, hyperlipidemia, high cholesterol, degenerative joint disease, alcoholism, gout, obesity. PAST SURGICAL HISTORY: Includes appendectomy in 2009; vasectomy; bilateral hip replacements, sigmoid colectomy for perforated diverticulitis; colostomy creation and subsequent colostomy reversal; open incisional hernia repair with component separation and mesh placement and panniculotomy in 04/2014; shoulder surgery in 2017. MEDICATIONS ON ADMISSION: Includes, 1. Spironolactone 25 mg q.a.m. 2. Celebrex 200 mg once a day. 3. Iron 18 mg daily. 4. Lactulose 30 mL p.r.n. 5. Daily multiple vitamins. 6. Daily MiraLAX. ALLERGIES: HE IS ALLERGIC TO SULFA. SOCIAL HISTORY: Currently, does not use alcohol. He still smokes a pipe. Long history of alcoholism in the past. PSYCHIATRIC HISTORY: Significant for anxiety. REVIEW OF SYSTEMS: CONSTITUTIONAL: At the time of admission, denies chills, fever, general malaise. HEENT: Denies drainage or sores in ears, nose, and throat. CHEST: Denies cough or shortness of breath. CARDIOVASCULAR: Denies palpitations or chest pain. GI: Denies nausea, vomiting, or diarrhea. : Denies dysuria or blood in urine or stool. MUSCULOSKELETAL: Has diffuse muscle aches and pains in his larger joints as a baseline. SKIN: No new rashes or lesions. NEUROLOGIC: He has altered mental status, and he has been having a repeated syncopal episode since discovered on the porch of the restaurant. PHYSICAL EXAMINATION AT THE TIME OF ADMISSION: VITAL SIGNS: On arrival, blood pressure 98/49, O2 saturation 100% on 2 L, pulse 57, respirations 16, pain scale 0. GENERAL: Elderly, responsive, cooperative male. HEENT: Normocephalic, atraumatic. Pupils are equal, round, and reactive to light. Extraocular muscles are intact. TMs nares are clear. Pharynx is dry. NECK: Supple. Trachea midline. No mass. CHEST: Clear to auscultation. HEART: Regular rate and rhythm. No murmur. ABDOMEN: Soft, nontender with hepatomegaly. No mass. : Deferred. EXTREMITIES: Without clubbing, cyanosis, or edema. Normal range of motion present. SKIN: Poor turgor. No acute lesions. NEUROLOGIC: Cranial nerves are intact. Unable to test gait and cerebellar function at this time. Sensory exam is grossly intact. Mental status is returning to baseline with hydration. IMAGING STUDIES: EKG showed sinus bradycardia with incomplete right bundle-branch block. First-degree AV block. ST segments are normal. T-waves are normal. CT of the head showed no evidence of acute intracranial abnormalities, but multiple pockets of soft tissue air and gas were present. LABORATORY DATA: WBCs 6.1, hemoglobin 12.1, hematocrit 35.4 with platelets at 97,000. Sodium 141, potassium 3.6, chloride 114, CO2 of 19, BUN 7, creatinine 0.79 with a GFR greater than 90. Alkaline phosphatase low at 32. Other liver functions normal. Troponin I is negative. BNP 28. ASSESSMENT: 1. Heat stroke. 2. Bradycardia. 3. Dehydration. 4. Multiple syncopal episodes with altered mental status secondary to heat stroke. 5. History of alcoholism. 6. Thrombocytopenia. PLAN: Plan will be continued hydration. CT of the chest and neck to evaluate the soft pockets of air noted on CT of the head. Continue fluid rehydration. We will also monitor his heart rate. I will keep him on telemetry and serially re-evaluate him. Job ID: [id number]
--- NOTE | 2018-11-24 18:11 | CON ---
DATE OF CONSULTATION: 11/24/2018 REASON FOR CONSULTATION: Syncope. HISTORY OF PRESENT ILLNESS: Mr. Elias is a very pleasant 68-year-old gentleman. The patient was outside with some friends at a restaurant for a couple of hours yesterday afternoon, it was very hot. He went outside, because he wanted to smoke his pipe and he could not smoke his pipe indoors. After a couple of hours, he started feeling weak and fatigued, finally lost consciousness. He said he could feel himself going down, just could not stop it. He was brought to the emergency room. He was found to be very dehydrated and also has a low heart rate. He had no chest pain. The patient has a history of liver disease. There are some notes in the chart of having cirrhosis. The patient thinks he does not have cirrhosis. The patient states he used to drink, but stopped 12 years ago. MEDICATIONS: At home was; 1. Spironolactone 25 mg a day. 2. Lactulose 30 mL every 2 days. 3. Multivitamin. 4. Iron. 5. Celebrex. 6. Polyethylene glycol. ALLERGIES: TO SULFA. REVIEW OF SYSTEMS: CONSTITUTIONAL: He says he still feels fuzzy in terms of his thinking. HEENT: Vision, no changes. Hearing, no changes. PULMONARY: No cough or wheezing. CARDIAC: Positive for syncope. No chest pain. GASTROINTESTINAL: No nausea, vomiting, or diarrhea. SKIN: No rashes. NEUROLOGIC: No unilateral weakness or numbness. PSYCHIATRIC: No unusual depression or anxiety. HEMATOLOGIC: No unusual bruising. GENITOURINARY: No burning urination. PHYSICAL EXAMINATION: GENERAL: This is a pleasant middle-aged gentleman, in no distress. VITAL SIGNS: Blood pressure 103/55, pulse is still low in the low 40s, it is sinus. HEENT: Eyes, sclerae nonicteric. Mouth, mucous membranes moist. NECK: Supple. No lymphadenopathy. LUNGS: Clear. No wheezing, rales, or rhonchi. CARDIAC: Normal S1, normal S2. He is bradycardic. I do not hear murmur, rub, or gallop. ABDOMEN: Soft and nontender. EXTREMITIES: Warm and dry. No clubbing or cyanosis. There is no edema. SKIN: Warm and dry. EKG reveals sinus bradycardia. PERTINENT LABORATORY DATA: Creatinine is 0.66 and potassium is 3.9. Cardiac enzymes are all less than 0.10. ASSESSMENT: 1. Syncope, likely related to volume depletion/dehydration with superimposed sinus bradycardia. 2. History of liver troubles? Cirrhosis. PLAN: 1. Continue intravenous fluids. We will reduce the rate. He should be hydrated by now. 2. Hold diuretics. 3. Check PT, PTT, and INR tomorrow to reassess the liver. 4. Check iron levels. 5. Echocardiogram. 6. The patient may ultimately need pacemaker insertion, but would like to evaluate his liver first. If he does have cirrhosis, there would be some increased risk of infection, long-term. Further recommendations following evaluation of his liver and echocardiogram tomorrow. Discussed pacemaker insertion, risks including bleeding, infection, air on the lung, lead dislodgement. He understands and wishes to proceed. If indicated, we will discuss it again if he needs pacemaker. Job ID: [id number]
[2018-11-24] MEDS: Nicotine 14 MG PATCH TOP SCH (18:18)
[2018-11-25 06:00] LABS: INR-International Normal Ratio 1.2; PTT 36.1 SEC (22.9-36.1)
[2018-11-25 06:12] LABS: Iron 43 ug/dL (65-175); Iron Binding Capacity, Total 206 mcg/dL (261-462)
[2018-11-25] MEDS: Sodium Chloride 0.9% 1,000 ML IV SCH (06:20)
--- NOTE | 2018-11-25 16:28 | PRG ---
DATE OF SERVICE: SUBJECTIVE: Mr. Elias is doing well overnight. His heart rate still getting low ever, sometimes in the low 30s. OBJECTIVE: LUNGS: Clear. CARDIAC: Normal S1 and normal S2. ABDOMEN: Soft and nontender. EXTREMITIES: No clubbing. No cyanosis. No edema. DIAGNOSTIC DATA: Echocardiogram shows normal left ventricular function, [id number] mitral and tricuspid insufficiencies. ASSESSMENT AND PLAN: 1. Symptomatic sinus bradycardia. 2. History of cirrhosis, but the coagulation studies were just barely out of the normal range. INR is 1.2. The patient is a reasonable candidate to proceed with pacemaker insertion. We will notify Dr. Harry. Job ID: [id number]
[2018-11-25] MEDS ORDERED: CeleCOXIB 100 MG CAP PO SCH (17:45)
[2018-11-25] MEDS: Nicotine 14 MG PATCH TOP SCH (17:59)
[2018-11-25] MEDS: Zolpidem Tartrate 5 MG TAB PO SCH (21:33)
[2018-11-26] MEDS ORDERED: CEFAZOLIN 2 GM in Premix Bag 1 BAG IVPB SCH (03:00)
[2018-11-26] MEDS: CeleCOXIB 100 MG CAP PO SCH (09:34)
[2018-11-26] MEDS ORDERED: CEFAZOLIN 1 GM VIAL ONE (09:49)
[2018-11-26] MEDS ORDERED: Gentamicin 80 MG/2 ML VIAL ONE (09:49)
[2018-11-26] MEDS ORDERED: Midazolam HCl 2 mg/2 ml Vial ONE ×2 (12:54→13:06)
[2018-11-26] MEDS ORDERED: Morphine 2 MG/ML SYRINGE ONE (13:22)
[2018-11-26] MEDS ORDERED: Acetaminophen/Codeine 30-300mg Tablet PO PRN (14:09)
--- NOTE | 2018-11-26 14:55 | RAD ---
Exam: Chest one view HISTORY:Status post cardiac device placement. Comparison: 03/21/2017 FINDINGS: Cardiac silhouette:Upper normal heart size. Aorta: Atherosclerosis Pacemaker: Interval placement of a left-sided transvenous pacemaker with lead positioned over the rig ht atrium and right ventricle. Pulmonary vessels: Normal Costophrenic angles: Clear LUNGS: No masses or consolidation. Pneumothorax: None Osseous abnormalities: None IMPRESSION: 1. Interval placement of left-sided transvenous pacemaker. 2. No pneumothorax.
[2018-11-26] MEDS: Nicotine 14 MG PATCH TOP SCH (17:03)
--- NOTE | 2018-11-26 18:21 | CCL ---
DATE OF PROCEDURE: 11/26/18 INDICATION: 68-year-old patient with symptomatic bradycardia with syncope. The patient was found to have symptomatic bradycardia with syncope. He was advised to undergo dual ch jenny pacemaker insertion. He was taken to the cardiac labor economics teacher where he was prepped and draped in the sterile fashion and under went the procedure without difficulties or complications. A full dictated note is already in the neptali t. He was implanted with an MRI compatible device from [employer] with two screw-in leads. One in the atrium and one in the ventricle. There are no complications or difficulties encountered. He was give n IV Versed and morphine for the procedure and throughout the procedure was monitored by an independe nt observer present for heart rate, blood pressure, and O2 saturations. Total sedation time was appro ximately 30 minutes. Pacemaker was set with the upper rate at 130 and the lower rate was set at 60.
[2018-11-26] MEDS: Zolpidem Tartrate 5 MG TAB PO SCH (21:14)
[2018-11-27] MEDS: CeleCOXIB 100 MG CAP PO SCH (09:44)
[2018-11-27 10:39] VITALS: BP 128/72; TEMP 98.5
--- NOTE | 2018-11-28 09:16 | EKG ---
Test Reason : S/P PACEMAKER Blood Pressure : / mmHG Vent. Rate : 060 BPM Atrial Rate : 058 BPM P-R Int : 000 ms QRS Dur : 154 ms QT Int : 472 ms P-R-T Axes : 000 -78 084 degrees QTc Int : 472 ms AV dual-paced rhythm with prolonged AV conduction Abnormal ECG When compared with ECG of 23-NOV-2018 19:44, (Unconfirmed) Electronic ventricular pacemaker has replaced Sinus rhythm Confirmed by PONCE BARGER, DR. Khan ([id number]) on 11/28/2018 9:16:13 AM Referred By: DIONI Confirmed By:DR. Erin SERRA MD
--- NOTE | 2018-11-28 11:22 | EKG ---
Test Reason : BRADYCARDIA Blood Pressure : / mmHG Vent. Rate : 058 BPM Atrial Rate : 058 BPM P-R Int : 000 ms QRS Dur : 096 ms QT Int : 456 ms P-R-T Axes : 022 -03 020 degrees QTc Int : 447 ms Sinus bradycardia with 1st degree A-V block Incomplete right bundle branch block Borderline ECG Confirmed by REJI BARGER, ROSALBA Carson ([id number]), assignment editor LINDA SAL ([id number]) on 11/28/2018 11:22:09 AM Referred By: Confirmed By:ROSALBA MENDOZA MD
== END 2018-11-27 10:45 | disposition home or self-care (01) | DRG 243 ==
LOC: ERS 19:43 → 2SW 23:30 → OBSVTOIN 11-25 17:19 → 2NO 11-25 20:28
PROVIDERS: ADMIT Specialist; ATTEND Specialist
PROC: 0JH606Z Insertion of Pacemaker, Dual Chamber into Chest Subcutaneous Tissue and Fascia, Open Approach (ICD-10-PCS; principal; 2018-11-26)
PROC: 02H63JZ Insertion of Pacemaker Lead into Right Atrium, Percutaneous Approach (ICD-10-PCS; 2018-11-26)
PROC: 02HK3JZ Insertion of Pacemaker Lead into Right Ventricle, Percutaneous Approach (ICD-10-PCS; 2018-11-26)
DX: R00.1 Bradycardia, unspecified (principal); T67.0XXA Heatstroke and sunstroke, initial encounter; E86.0 Dehydration; D69.6 Thrombocytopenia, unspecified; E78.5 Hyperlipidemia, unspecified; E66.9 Obesity, unspecified; M10.9 Gout, unspecified; R55 Syncope and collapse; Z96.643 Presence of artificial hip joint, bilateral; Z90.49 Acquired absence of other specified parts of digestive tract; Z98.52 Vasectomy status; Z88.2 Allergy status to sulfonamides; Z68.34 Body mass index [BMI] 34.0-34.9, adult
CPT/HCPCS: 33208; 36415; 70450; 70491; 71045; 71260; 80048; 80053; 81003; 82550; 82728; 83540; 83550; 83605; 83880; 84484; 85025; 85610; 85730; 93005; 93010; 93306; 96360; 99152; 99153; C1785; C1898; J0690; J1580; J2250; J2270

== ENCOUNTER 2019-01-16 10:34 | Inpatient (IN) | payer BC, MEDICARE ==
--- NOTE | 2019-01-16 10:57 | RAD ---
EXAM: Chest Two Views 01/16/2019 10:54 AM HISTORY: Concern for pacemaker infection COMPARISON: November 02, 2014 FINDINGS: Heart: Normal in size and contour. Pulmonary vessels: Normal. Costophrenic angles: Clear. Lungs: No confluent pneumonia, overt edema, pleural effusion, or other acute process. Pneumothorax: None. Osseous structures:Right total shoulder replacement is unchanged. Additional findings: Dual-lead pacemaker is unchanged from a single view chest radiograph compariso n dated November 26, 2018. IMPRESSION: No significant acute intrathoracic disease.
[2019-01-16 12:07] LABS: #Basophils 0.1 thou/uL (0.0-0.2); #Eosinphils 0.2 thou/uL (0.0-0.7); #Lymphocytes 1.6 thou/uL (1.20-3.40); #Monocytes 0.5 thou/uL (0.11-0.59); %Basophils 1.5 % (0.0-1.0); %Eosinophils 3.1 % (0.0-10.0); %Lymphocytes 29.4 % (21.0-51.0); %Monocytes 9.8 % (0.0-10.0); %Neutrophils 56.2 % (42.0-75.0); Hemoglobin 14.8 g/dL (14.0-18.0); Mean Corpuscular HGB CONC 35.3 g/dL (32.0-36.0); Mean Corpuscular Hemoglobin 34.3 pg (27.0-31.0); Mean Corpuscular Volume 97.1 fL (78.0-98.0); Mean Platelet Volume 8.6 fL (7.4-10.4); Platelet Count 115 thou/uL (130-400); RBC Distribution Width 11.9 % (11.5-14.5); White Blood Cell (WBC) Count 5.3 thou/uL (4.8-10.8)
[2019-01-16 12:24] LABS: ALT (SGPT) 11 U/L (8-55); AST (SGOT) 19 U/L (5-34); Albumin 3.9 g/dL (3.4-4.8); Alkaline Phosphatase 39 U/L (40-150); Anion Gap 12 mmol/L (10-20); BUN (Urea Nitrogen) 7 mg/dL (8.4-25.7); Bilirubin, Total 0.8 mg/dL (0.2-1.2); Calc. Creatinine Clearance 0 mL/min (70-130); Calcium 9.8 mg/dL (7.8-10.44); Carbon Dioxide 26 mmol/L (23-31); Chloride 107 mmol/L (98-107); Estimated GFR-MDRD Greater than 90; Globulin 2.7 g/dL (2.4-3.5); Glucose 94 mg/dL (80-115); Protein, Total 6.6 g/dL (5.8-8.1); Sodium 141 mmol/L (136-145)
[2019-01-16] MEDS ORDERED: Piperacillin/Tazobactam 4.5 GM VIAL ONE (12:46)
[2019-01-16] MEDS ORDERED: Clindamycin/D5W 900 mg/50 ml Premix Bag ONE (12:47)
[2019-01-16] MEDS ORDERED: Sodium Chloride 0.9% 1,000 ML IV SCH (15:47)
[2019-01-16] MEDS ORDERED: HYDROcodone/Acetaminophen 5/325 mg Tablet PO PRN ×2 (15:47)
[2019-01-16] MEDS ORDERED: Acetaminophen 325 MG TAB PO PRN ×2 (15:47→17:53)
[2019-01-16] MEDS ORDERED: Ondansetron ODT 4 MG TAB SL PRN (15:47)
[2019-01-16] MEDS ORDERED: Ondansetron PF 4 MG/2 ML Vial IVP PRN ×2 (15:47→17:54)
[2019-01-16 16:09] VITALS: BMI 32.3
[2019-01-16] MEDS ORDERED: Piperacillin/Tazobactam 4.5 GM in Sodium Chloride 0.9% 100 ML IVPB SCH (18:00)
[2019-01-16] MEDS ORDERED: Clindamycin/D5W 900 MG in Premix Bag 1 BAG IVPB SCH (20:00)
[2019-01-16] MEDS: Piperacillin/Tazobactam 4.5 GM in Sodium Chloride 0.9% 100 ML IVPB SCH ×2 (20:06→23:39)
--- NOTE | 2019-01-16 21:08 | CON ---
DATE OF CONSULTATION: 01/16/2019 INDICATION FOR CONSULTATION: This is a 68-year-old gentleman, who recently underwent a pacemaker insertion, I believe on November 27, due to episode of syncope and sick-sinus syndrome with symptomatic bradycardia. He had no complications or difficulties after the pacemaker was inserted, but yesterday or today his noticed he had a small little blister around the lateral side of the pacemaker incision site and she had extruded a small amount of pus since he was taken to the emergency room. He has had problems like this in the past apparently on previous surgery with some reaction apparently to the sutures, which also formed little blisters and then partial small portions of the suture had to be removed. Unfortunately, he failed to explain this to us prior to undergoing the pacemaker insertion, but otherwise has remained relatively stable. He has had no other problems. He has had no syncopal episodes and overall I assume that the pacemaker function has been normal. He has had no further episodes of syncope or lightheadedness. PAST MEDICAL HISTORY: Please refer to the notes dictated by my nurse practitioner. SOCIAL HISTORY: Please refer to the notes dictated by my nurse practitioner. FAMILY HISTORY: Please refer to the notes dictated by my nurse practitioner. REVIEW OF SYSTEMS: Please refer to the notes dictated by my nurse practitioner. MEDICATIONS: Please refer to the notes dictated by my nurse practitioner. ALLERGIES: HE IS ALLERGIC TO SULFA MEDICATIONS. PHYSICAL EXAMINATION: GENERAL: Reveals a well-developed, well-nourished gentleman, who is in no acute distress at this time. He is alert, oriented. VITAL SIGNS: Stable. Blood pressure is slightly elevated at 145/90. He is afebrile. Heart rate is 80, respiratory rate is 16. HEENT: Unremarkable. CHEST: Clear to auscultation. CARDIOVASCULAR: Reveals a regular rate and rhythm at this time. No significant murmurs, heaves, thrills, bruits, or rubs. There is a very small area of erythema and small ulceration where the small blister was opened this morning by the patient's and she says she extruded a small amount of pus from this area and actually this is only a very small area, not much bigger than the actual site, is less than half a millimeter in diameter, but there is some erythema around the lateral side of the pacemaker site incision. Otherwise is nontender and there is no fluctuation there. ABDOMEN: Unremarkable. EXTREMITIES: No clubbing, cyanosis, or edema. NEUROLOGIC: The patient is fully intact. There are no gross focal motor deficits. SKIN: Warm and dry otherwise. LABORATORY DATA: Hemoglobin of 14.8, WBC of 5.3, platelet count of 115,000. His chemistries are all normal. Creatinine 0.78. His chest x-ray is also unremarkable. There were no acute abnormalities noted. At this time, we will continue to follow the patient. IMPRESSION AND PLAN: Small infection in the incision site, status post pacemaker insertion. The patient may have an allergy to the material that was used to close the wound, it seems to be some type of reaction. We will continue to follow this very carefully. reaction to the suture material, the whole wound may dehisce and may require removal of the pacemaker as well as replacement on the opposite side depending on his progress, he is on antibiotics at this time and I would agree with the present management. Otherwise, from a cardiac standpoint, the patient is doing well and we are more than happy to continue to follow the patient with you throughout his hospital course. His medications prior to admission included Aldactone, lactulose, multivitamins, iron, Celebrex, and polyethylene glycol. He has some history of liver disease, but the patient denies any significant history of cirrhosis. He will be seen I believe by Dr. Talley on this admission. At this time, he is on clindamycin as well as piperacillin and vancomycin. Job ID: [id number]
[2019-01-16] MEDS: Clindamycin/D5W 900 MG in Premix Bag 1 BAG IVPB SCH (21:23)
[2019-01-16] MEDS: Vancomycin HCl 1.5 GM in Sodium Chloride 0.9% 250 ML 300 ML IVPB SCH (23:49)
[2019-01-16] MEDS ORDERED: Vancomycin HCl 1 GM in Premix Bag 1 BAG IVPB SCH (23:59)
[2019-01-17] MEDS: Clindamycin/D5W 900 MG in Premix Bag 1 BAG IVPB SCH ×2 (05:18→15:36)
[2019-01-17] MEDS: Piperacillin/Tazobactam 4.5 GM in Sodium Chloride 0.9% 100 ML IVPB SCH ×4 (06:30→23:06)
[2019-01-17 07:14] LABS: #Basophils 0.1 thou/uL (0.0-0.2); #Eosinphils 0.2 thou/uL (0.0-0.7); #Lymphocytes 1.6 thou/uL (1.20-3.40); #Monocytes 0.5 thou/uL (0.11-0.59); #Neutrophils 3.2 thou/uL (1.40-6.50); %Basophils 1.5 % (0.0-1.0); %Eosinophils 4.3 % (0.0-10.0); %Lymphocytes 28.5 % (21.0-51.0); %Monocytes 9.6 % (0.0-10.0); %Neutrophils 56.1 % (42.0-75.0); Hemoglobin 13.7 g/dL (14.0-18.0); Mean Corpuscular HGB CONC 34.9 g/dL (32.0-36.0); Mean Corpuscular Hemoglobin 34.2 pg (27.0-31.0); Platelet Count 107 thou/uL (130-400); RBC Distribution Width 12.1 % (11.5-14.5); Red Blood Cell (RBC) Count 4.01 mill/uL (4.70-6.10); White Blood Cell (WBC) Count 5.7 thou/uL (4.8-10.8)
[2019-01-17] MEDS: CeleCOXIB 100 MG CAP PO SCH (08:40)
[2019-01-17] MEDS: Multivit, Therapeutic 1 TAB PO SCH (08:40)
[2019-01-17] MEDS: Vancomycin HCl 1.5 GM in Sodium Chloride 0.9% 250 ML 300 ML IVPB SCH (12:57)
--- NOTE | 2019-01-17 14:17 | HP ---
CHIEF COMPLAINT: Suture reaction to pacemaker site as well as secondary cellulitis. HISTORY OF PRESENT ILLNESS: The patient is a 68-year-old male, who on November 27 had his syncopal episode and sick sinus syndrome with symptomatic bradycardia. Two weeks ago, he underwent pacemaker placement with Dr. Harry. Then, on the day of admission prior to admission, he had a small blister developed on the edge of his incision site for the pacemaker. His investigated with this further and with lateral pressure expressed pus, at which time her concern sent him to the emergency room, where his vital signs were stable. There had been no fevers. Lab looked good, but he did have bethany pus coming from the incision site. Cultures were taken of the blood and of the actual discharge at which point, Dr. Navarro was contacted to put him in the hospital for further antibiotics until he can be further evaluated by Dr. Harry and Dr. Talley and the cellulitis could be actively treated. Since the pacemaker placement, he has had no further episodes of syncope, lightheadedness, or weakness. PAST MEDICAL HISTORY: Last hospitalization was November 23, 2018 for the aforementioned heat stroke, bradycardia, and dehydration. Prior to that, he had cirrhosis of the liver, hepatic encephalopathy, hyperlipidemia, high cholesterol, degenerative joint disease, alcoholism, gout, and obesity. PAST SURGICAL HISTORY: His prior surgical experience included an appendectomy in 2009, vasectomy, bilateral hip replacement, at which time he went home after the hip replacement and due to significant constipation, his bowels ruptured. He came back in, had a colostomy. They called it a perforated diverticula, for which he had a sigmoid colectomy and then colostomy, but he had a reaction to the incisional suture, at which time he was opened back up and incisional hernia repair was then performed with mesh placement and repair in April 2014, and shoulder surgery in 2016. MEDICATIONS ON ADMISSION: Include, 1. Spironolactone 25 mg q.a.m. 2. Celebrex 200 mg daily. 3. Iron 18 mg daily. 4. Lactulose 30 mL daily. 5. Multiple vitamin daily. 6. Daily MiraLAX. ALLERGIES: TO SULFA AND SUTURES. REVIEW OF SYSTEMS: CONSTITUTIONAL: At the time of admission, denies fever, chills, or fatigue. HEENT: Denies drainage from eyes, ears, nose, or throat or pain. CHEST: Denies dyspnea or cough. CARDIOVASCULAR: Denies palpitations or chest pain. GI: Denies nausea, vomiting, or diarrhea. : Denies dysuria or blood in urine or stool. MUSCULOSKELETAL: Has diffuse aches and pains in his major joints, but these are not new. SKIN: The incisional rupture with production of pus in the left chest wall where his pacemaker was placed. Circumferential erythema, heat, and tenderness are noted. NEUROLOGIC: Mental status is clear. No hypoesthesia or anesthesia noted. PHYSICAL EXAMINATION: VITAL SIGNS: On admission, blood pressure 138/91, pulse 85, respirations 16, temperature 98.3, pain at 0, O2 saturation 99% on room air. GENERAL: This is a well-developed, well-nourished, obese male, alert, oriented, and cooperative, in no acute distress. HEENT: Normocephalic, atraumatic. Pupils are equal, round, and reactive to light. Extraocular muscles are intact. TMs, nares, and pharynx are clear. NECK: Supple. Trachea midline. CHEST: Clear to auscultation. Incision site noted with erythema, heat tenderness, and swelling noted. Clear serosanguineous fluid oozing from the site at this time. HEART: Regular rate and rhythm without murmur. ABDOMEN: Soft, nontender without hepatosplenomegaly. : Deferred. EXTREMITIES: Without clubbing, cyanosis, or edema. Normal range of motion is present. SKIN: Without rashes or lesions, except for the incisional infection in the left side of the chest wall where the pacemaker is placed, oozing serosanguineous fluid with surrounding erythema, heat, and tenderness. NEUROLOGIC: Cranial nerves are intact. Gait and cerebral function are not tested. Sensory exam is grossly intact. Mental status is at baseline. LABORATORY DATA: Lab work thus far shows WBCs at 5.3, hemoglobin 14.8, hematocrit 41.7 with platelets at 115. Sodium is 141, potassium 4.0, chloride 107, CO2 of 26, BUN 7, creatinine 0.7 with a GFR greater than 90. Lactic acid of 1.5. Liver functions normal. Troponins normal. IMAGING STUDIES: Chest x-ray, no significant acute intrathoracic disease. ASSESSMENT: 1. Cellulitis, left chest wall from pacemaker insertion site. 2. Suture reaction, probable cause to cellulitis of the above. 3. Status post pacemaker insertion for sick sinus syndrome, syncope, and symptomatic bradycardia. 4. History of cirrhosis. PLAN: Plan will be to continue IV antibiotics. Infectious Disease consultation , Dr. Harry has also been consulted and seen the patient, and serial re-evaluation will be performed. A day after beginning of antibiotics, he is already showing decreased erythema, decrease heat, decreased tenderness at the incision site. Cultures are still pending. Job ID: [id number] MTDD
--- NOTE | 2019-01-17 17:28 | PDOC.CTH ---
Cardiology Progress Note - Subjective The pt seen and examined. No overnight events. No cardiac complaints. - Objective Vital Signs Temp Pulse Resp BP BP Pulse Ox 01/17/19 15:16 97.3 F L 70 18 133/84 99 01/17/19 12:00 97.2 F L 80 16 123/80 99 01/17/19 08:40 98 01/17/19 07:39 97.4 F L 60 14 120/80 98 Weight 225 lb 01/16/19 01/17/19 01/18/19 06:59 06:59 06:59 Intake Total 1080 Balance 1080 - Physical Examination General/Neuro: alert & oriented x3 Neck: no JVD present Lungs: CTA Heart: RRR Abdomen: soft Extremities: other: (No edema; mild erhythema to Lt upper chest) - Labs Result Diagrams: 01/17/19 06:26 01/16/19 11:53 Troponin/CKMB Troponin I Less than 0.010 ng/mL (< 0.028) 01/16/19 11:53 - Assessment/Plan 1. Cellulitis to Lt PM site 2/2 inner suture reaction - the erythema the site has been smaller; The pt stated the tenderness to the site resolved now; on IV ABX, which managed by PCP and Dr Talley 2. PM placement in 11/2018 2/2 SSS 3. possible hx of Liver cirrhosis 4. hx of ETOH abuse MAR reviewed Pt. seen and eval. by me. I agree with the A/P by the SECRETARY ADMINISTRATIVE ASSISTANT. The infected area appears improved. Dr. Talley to eval. It does not appear to be an infected pacemaker wound.gjm Review of Systems - Review of Systems Constitutional: reports: no symptoms reported EENTM: reports: no symptoms reported Respiratory: reports: no symptoms reported Cardiac (ROS): reports: no symptoms reported ABD/GI: reports: no symptoms reported : reports: no symptoms reported Musculoskeletal: reports: no symptoms reported
[2019-01-17 23:36] LABS: Vancomycin, Trough 18.3 ug/mL
--- NOTE | 2019-01-17 23:39 | CON ---
DATE OF CONSULTATION: 01/17/2019 REASON FOR CONSULTATION: Possible pacemaker site infection. 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 Harry. The day before admission, he developed what he describes as a small blister. He initially noticed that because the shirt was rubbing against his chest wall and was causing pain. His reportedly expressed purulent exudate from one of the edges of the incision. The incision itself has healed completely and there is no evidence of dehiscence at this point in time. The patient has been started on broad-spectrum coverage and there has been improvement. No more tenderness at the site. No headaches, visual symptoms, sore throat, odynophagia, or dysphagia. No cough or sputum production. No chest pain. No dyspnea. No abdominal pain or diarrhea. No genitourinary symptoms. No joint symptoms. PAST MEDICAL HISTORY: Alcoholism in remission, bradycardia with symptoms requiring pacemaker placement, previous laparotomy with colostomy which has been taken down, appendectomy, left shoulder replacement, bilateral hip replacements. ALLERGY HISTORY: Sulfa drugs. FAMILY HISTORY: Noncontributory. SOCIAL HISTORY: . Current smoker. He used to drink heavily, but he is abstinent now for 12 years. MEDICATIONS: 1. Tylenol. 2. Celebrex. 3. Clindamycin. 4. Lactulose. 5. Theragran. 6. Zosyn. 7. Vancomycin. PHYSICAL EXAMINATION: VITAL SIGNS: T-max 97.3, blood pressure 130/80, pulse 70, respirations 18, O2 saturation 99. SKIN: Shows small area of what appears to be folliculitis right under the pacemaker incision which has completely healed and does not have any inflammatory changes. Around this area of folliculitis, there is some erythema, mild tenderness. The pacer pocket is not tender to palpation. HEENT: Not remarkable. NECK: No lymphadenopathy. Supple. LUNGS: Symmetric, clear breath sounds. HEART: S1 and S2, regular rate. No S3 or S4. ABDOMEN: Soft. Not distended or tender. No ascites. No bladder distention. MUSCULOSKELETAL: No joint inflammatory activity. No edema. Pulses 1+ in dorsalis pedis. Plantar responses are flexor without clonus. NEUROLOGICAL: Cognitive function appears to be intact. LABORATORY DATA: White cell count 5.3 and 5.7, hemoglobin 13.7, MCV 98, platelets 107, normal differential. Chemistry was not particularly remarkable. Microbiology with gram-negative lauren yielded from the chest area in rare amounts. ASSESSMENT: History of alcoholism, in remission. Sick sinus syndrome status post pacemaker placement about a month before and now inflammatory changes with area of folliculitis with a gram-negative lauren retrieved. DISCUSSION: The findings are more consistent with folliculitis, which is a superficial process at the moment of the exam, does not appear to have involved the pacer pocket site. We will wait for the final identification of the organism. Discontinue clindamycin and then hopefully transition to oral antimicrobial therapy for discharge planning. If there is exacerbation of inflammatory process, then I would advise ultrasound to see if he has fluid around the pacer pocket for consideration of an infection directly involving the pacer pocket site. This, however, is not apparent at this time. Job ID: [id number]
[2019-01-18] MEDS: Vancomycin HCl 1.5 GM in Sodium Chloride 0.9% 250 ML 300 ML IVPB SCH ×2 (00:27→12:26)
[2019-01-18] MEDS: Piperacillin/Tazobactam 4.5 GM in Sodium Chloride 0.9% 100 ML IVPB SCH ×3 (06:14→17:16)
[2019-01-18] MEDS: CeleCOXIB 100 MG CAP PO SCH (08:30)
[2019-01-18] MEDS: Multivit, Therapeutic 1 TAB PO SCH (08:30)
--- NOTE | 2019-01-18 10:13 | CON ---
DATE OF CONSULTATION: PRIMARY CARE DOCTOR: Dr. Marc Navarro. PRIMARY PLANT MAINTENANCE MECHANIC: Dr. Van. REASON FOR CARDIOLOGY CONSULT: Postoperative wound infection to the pacemaker. HISTORY OF PRESENT ILLNESS: Mr. Elias is a 68-year-old male with a significant history of hypertension, liver cirrhosis, hyperlipidemia, symptomatic bradycardia with status post pacemaker placement on November 26, [address] Beth Harry. Since then, he was doing well, but he noticed he has a redness and tender to the pacemaker site for more than 14 days. This morning, he noticed more redness to the site with worsening of the tenderness for the last 2 or 3 days. This morning, the patient's popped the cyst and he noticed pus was coming out from a different site where he has a cyst, so the patient was asking to go to the emergency department for further evaluation and treatment. The patient denied any fever like symptom, dizziness, lightheadedness, chest pain, discomfort in his chest, shortness of breath, or any other cardiac complaints. He has a history of reaction to internal suture before and he had to stay in the hospital extensively in the past. At this moment, the patient denies any chest pain, heaviness, tightness, or any cardiac complaints. The patient had an echocardiogram in November 2018 with EF 55% to 60%, mildly dilated left atrium, [id number] mitral valve regurgitation, and [id number] tricuspid regurgitation. He had site check eval on December 16, showing the site is clean, dry, intact no redness, heat, edema, or drainage noted from the site. He has not had any cardiac catheterization in the past. PAST MEDICAL HISTORY: Inguinal and ventral hernia, hyperlipidemia, cirrhosis, and symptomatic bradycardia. SURGICAL HISTORY: Ventral and inguinal hernia repair in April 2014, bilateral hip replacement in 1996, bowel laparotomy x 2, colostomy, and bowel resection, appendectomy, right shoulder replacement, and pacemaker placement on November 26, 2018. FAMILY HISTORY: Noncontributory. SOCIAL HISTORY: He is . He lives with his . The patient denied EtOH or illicit drug abuse. He used to drink before, but he does not drink alcohol at this moment. He smokes pipe and chews tobacco daily. ALLERGIES: THE PATIENT IS ALLERGIC TO SULFA AND THE PATIENT IS ALLERGIC TO INTERNAL SUTURE. REVIEW OF SYSTEMS: A 12-point review of systems negative unless otherwise mentioned in the HPI. PHYSICAL EXAMINATION: VITAL SIGNS: Blood pressure 145/90, temperature 97.5, pulse 81, respiratory rate 16, O2 saturation 99% on room air. GENERAL: The patient is alert and oriented x4. Not in acute distress. HEENT: Normocephalic and atraumatic. Eyes, extraocular muscle movement intact. ENT and mouth, oral and nasal mucosa moist without lesions. NECK: No JVD. Normal range of motion. RESPIRATORY: Clear to auscultate bilaterally. No rales or rhonchi noted. CARDIOVASCULAR: Regular rate and rhythm. Normal S1 and S2. There is no S3 or S4. No significant murmur, heaves, or thrill noticed. EXTREMITIES: 2+ bilateral upper and lower extremities. No edema in lower extremities. ABDOMEN: Soft, nontender. No mass to palpitate. Bowel sounds are present. SKIN: There is erythema to left upper chest, it is about 2.5 to 3 cm in diameter. The patient states that the size is getting smaller after the patient received antibiotic and no more tenderness to the site. Otherwise, the patient's skin is warm and dry. No erythema, lesion, or hematoma noticed. MUSCULOSKELETAL: The patient is able to move all extremities without difficulty. The patient denied claudication. PSYCHIATRIC: The patient's mood is appropriate. NEUROLOGIC: The patient is alert and oriented x4. Nonfocal. LABORATORY DATA: WBC 5.3, hemoglobin 14.8, platelets 115. Sodium 141, potassium 4.0, BUN 7, creatinine 0.78. AST 19, ALT 11. Chest x-ray shows no significant acute intrathoracic disease and no change from single-view chest radiograph comparison date on November 26, 2018. The patient had a blood culture done from the site, result is pending at this moment. ASSESSMENT AND PLAN: 1. Postoperative pacemaker infection. The patient has been on clindamycin, Zosyn, and also the vancomycin, which is managed by primary care doctor and pacemaker interrogation was ordered. 2. Symptomatic bradycardia with status post dual pacemaker placement on November 26, 2018. When the patient was in the office in on December 16, EKG was taken and showing normal pacing and function of the pacemaker. We would like to continue to monitor. Thank you very much for Cardiology Service to participate in care of this patient. We will follow along the patient's care team and make further recommendations as appropriate. Job ID: [id number]
--- NOTE | 2019-01-18 10:46 | PDOC.CTH ---
Cardiology Progress Note - Subjective Pt. seen and eval. by me. No complaints. No new events. - Objective Vital Signs Temp Pulse Resp BP Pulse Ox 01/18/19 07:20 97.8 F 65 16 105/69 99 01/18/19 03:57 97.7 F 61 16 133/85 99 Weight 225 lb 01/17/19 01/18/19 01/19/19 06:59 06:59 06:59 Intake Total 1080 1900 Balance 1080 1900 - Physical Examination General/Neuro: alert & oriented x3 Neck: no JVD present Lungs: CTA Heart: RRR Abdomen: NT/ND, soft Other PE findings: Small lesion just beneath the pacer incision that had small amount pus - Labs Result Diagrams: 01/17/19 06:26 01/16/19 11:53 Troponin/CKMB Troponin I Less than 0.010 ng/mL (< 0.028) 01/16/19 11:53 - Assessment/Plan 1. Cellulitis to Lt PM site 2/2 inner suture reaction - the erythema the site has been smaller; The pt stated the tenderness to the site resolved now; on IV ABX, which managed by PCP and Dr Talley. Small amount of pus produced this AM with gentle palpation. Continue po antibiotics. 2. PM placement in 11/2018 2/2 SSS 3. possible hx of Liver cirrhosis 4. hx of ETOH abuse MAR reviewed
--- NOTE | 2019-01-18 11:51 | ULT ---
EXAM: Left chest wall ultrasound HISTORY: Pacemaker placement. Redness. Evaluate for abscess. Patient has a history of reaction to int ernal sutures. COMPARISON: None FINDINGS: There is shadowing from the pacemaker. There is a questionable tiny fluid collection just s uperficial to the pacemaker measuring less than 2 mm in thickness. No large fluid collection is seen IMPRESSION: No significant drainable fluid collection.
[2019-01-18 16:33] VITALS: BP 117/76; TEMP 97.9
== END 2019-01-18 18:40 | disposition home or self-care (01) | DRG 863 ==
LOC: ERS 10:34 → SURG A 15:50
PROVIDERS: ADMIT Specialist; ATTEND Specialist
DX: T81.41XA Infection following a procedure, superficial incisional surgical site, initial encounter (principal); L03.313 Cellulitis of chest wall; E78.5 Hyperlipidemia, unspecified; M19.90 Unspecified osteoarthritis, unspecified site; M10.9 Gout, unspecified; E66.9 Obesity, unspecified; I49.5 Sick sinus syndrome; I10 Essential (primary) hypertension; F17.220 Nicotine dependence, chewing tobacco, uncomplicated; F10.11 Alcohol abuse, in remission; Z96.611 Presence of right artificial shoulder joint; Z96.643 Presence of artificial hip joint, bilateral; Y83.1 Surgical operation with implant of artificial internal device as the cause of abnormal reaction of the patient, or of later complication, without mention of misadventure at the time of the procedure; Z90.49 Acquired absence of other specified parts of digestive tract; Z88.2 Allergy status to sulfonamides; Z95.0 Presence of cardiac pacemaker; Z93.3 Colostomy status; Z68.32 Body mass index [BMI] 32.0-32.9, adult
CPT/HCPCS: 36415; 71046; 80053; 80202; 83605; 84484; 85025; 87040; 87070; 87077; 87149; 87186; 87205; 96365; 96367; J2543; J3370; J3490; J7050

== ENCOUNTER 2022-10-30 14:34 | Outpatient (CLI) | payer BC, MEDICARE | END 2022-10-30 14:35 | disposition home or self-care (01) | LOC: BICULT 14:34 | PROVIDERS: ATTEND Internal Medicine Gastroenterology | DX: K70.30 Alcoholic cirrhosis of liver without ascites (principal); I10 Essential (primary) hypertension; K76.9 Liver disease, unspecified; K80.20 Calculus of gallbladder without cholecystitis without obstruction; R16.1 Splenomegaly, not elsewhere classified | CPT/HCPCS: 76705 ==

== ENCOUNTER 2023-07-21 08:24 | Outpatient (CLI) | payer BC, MEDICARE | END 2023-07-21 08:25 | disposition home or self-care (01) | LOC: BICULT 08:24 | PROVIDERS: ATTEND Physician Assistant Medical | DX: K70.30 Alcoholic cirrhosis of liver without ascites (principal); K80.20 Calculus of gallbladder without cholecystitis without obstruction | CPT/HCPCS: 76705 ==

== ENCOUNTER 2024-05-13 08:30 | Outpatient (CLI) | payer BC, MEDICARE ==
[2024-05-13 09:25] LABS: %Basophils 1.8 % (0.0-1.0); %Eosinophils 3.5 % (0.0-10.0); %Lymphocytes 21.6 % (21.0-51.0); %Monocytes 8.4 % (0.0-10.0); %Neutrophils 64.3 % (42.0-75.0); Hematocrit 44.1 % (42.0-52.0); Hemoglobin 15.1 g/dL (14.0-18.0); Mean Corpuscular HGB CONC 34.2 g/dL (32.0-36.0); Mean Corpuscular Hemoglobin 33.6 pg (27.0-31.0); Mean Corpuscular Volume 98.2 fL (78.0-98.0); Mean Platelet Volume 10.7 fL (7.4-10.4); Platelet Count 127 10x3/uL (130-400); RBC Distribution Width 13.3 % (11.5-14.5); Red Blood Cell (RBC) Count 4.49 mill/uL (4.70-6.10)
[2024-05-13 09:33] LABS: INR-International Normal Ratio 1.1; Prothrombin Time 14.6 sec (12.0-14.7)
[2024-05-13 09:34] LABS: PTT 35.2 sec (22.9-36.1)
[2024-05-13 09:46] LABS: ALT (SGPT) 12 U/L (8-55); AST (SGOT) 25 U/L (5-34); Albumin 3.8 g/dL (3.4-4.8); Alkaline Phosphatase 50 U/L (40-110); Anion Gap 15 mmol/L (10-20); BUN (Urea Nitrogen) 9 mg/dL (8.4-25.7); Bilirubin, Direct 0.4 mg/dL (0.1-0.3); Bilirubin, Total 1.2 mg/dL (0.2-1.2); Calc. Creatinine Clearance 0 mL/min (70-130); Calcium 9.3 mg/dL (7.8-10.44); Carbon Dioxide 23 mmol/L (23-31); Chloride 108 mmol/L (98-107); Estimated GFR 94; Glucose 87 mg/dL (83-110); Potassium 3.6 mmol/L (3.5-5.1); Protein, Total 6.9 g/dL (5.8-8.1); Sodium 142 mmol/L (136-145)
== END 2024-05-13 08:31 | disposition home or self-care (01) ==
LOC: LABBT 08:30
PROVIDERS: ATTEND Plastic Surgery
DX: Z01.818 Encounter for other preprocedural examination (principal); C44.311 Basal cell carcinoma of skin of nose
CPT/HCPCS: 80048; 80076; 85025; 85610; 85730; 93005; 93010

== ENCOUNTER 2024-05-14 10:41 | Day surgery (SDC) | payer BC, MEDICARE ==
[2024-05-13 08:46] VITALS: BMI 28.7
[2024-05-14] MEDS ORDERED: Scopolamine 1 mg/72 hour Patch ONE (11:30)
[2024-05-14] MEDS ORDERED: Midazolam HCl 2 mg/2 ml Vial ONE (11:30)
[2024-05-14] MEDS ORDERED: Heparin 5,000 UNITS/ML VIAL ONE (11:36)
[2024-05-14] MEDS ORDERED: PROPOFOL 20 ML ONE (11:58)
[2024-05-14] MEDS ORDERED: Rocuronium Bromide 10 MG/ML (10ML VIAL) ONE ×2 (11:58→14:03)
[2024-05-14] MEDS ORDERED: Vasopressin 20 UNITS/ML VIAL ONE (12:01)
[2024-05-14] MEDS ORDERED: fentaNYL PF 100 MCG/2 ML SYRINGE ONE (12:03)
[2024-05-14] MEDS ORDERED: EPINEPHrine 1 MG/ML VIAL ONE (12:06)
[2024-05-14] MEDS ORDERED: Bupivacaine 0.25% HCL 30 ML VIAL ONE (12:06)
[2024-05-14] MEDS ORDERED: Vancomycin 1 GM VIAL ONE (12:06)
[2024-05-14] MEDS ORDERED: Gentamicin 80 MG/2 ML VIAL ONE (12:06)
[2024-05-14] MEDS ORDERED: CEFAZOLIN 2 GM VIAL ONE (12:23)
[2024-05-14] MEDS ORDERED: PHENYLEPHRINE-NS 100 MCG/ML 10 ML SYRINGE ONE (13:49)
[2024-05-14] MEDS ORDERED: ePHEDrine Sulfate 50 MG/10 ML VIAL ONE (14:01)
[2024-05-14] MEDS ORDERED: Bacitracin Zinc Ointment 30 gm TUBE ONE (14:04)
[2024-05-14] MEDS ORDERED: fentaNYL 50 mcg/mL 1 mL Vial ONE (14:10)
[2024-05-14] MEDS ORDERED: SUGAMMADEX SODIUM 200 MG/2 ML VIAL ONE (14:20)
[2024-05-14] MEDS ORDERED: Dexamethasone 20 MG/5 ML VIAL ONE (14:42)
[2024-05-14] MEDS ORDERED: Ondansetron PF 4 MG/2 ML Vial ONE (14:42)
== END 2024-05-14 17:41 | disposition home or self-care (01) ==
LOC: SDC 10:41
PROVIDERS: ATTEND Plastic Surgery
PROC: 0HX1XZZ Transfer Face Skin, External Approach (ICD-10-PCS; principal; 2024-05-14)
DX: C44.311 Basal cell carcinoma of skin of nose (principal); D03.39 Melanoma in situ of other parts of face; D22.9 Melanocytic nevi, unspecified; I10 Essential (primary) hypertension; M19.90 Unspecified osteoarthritis, unspecified site; D64.9 Anemia, unspecified; Z98.890 Other specified postprocedural states; Z79.899 Other long term (current) drug therapy; Z88.2 Allergy status to sulfonamides
CPT/HCPCS: 88305; 88331; 88332; 88342; J0171; J0665; J1100; J1580; J1644; J2250; J2405; J2704; J3010; J3370

== ENCOUNTER 2024-06-01 07:04 | Emergency (ER) | payer BC, MEDICARE ==
[2024-06-01 08:13] LABS: %Basophils 1.4 % (0.0-1.0); %Eosinophils 2.9 % (0.0-10.0); %Lymphocytes 11.2 % (21.0-51.0); %Monocytes 9.1 % (0.0-10.0); Hematocrit 39.7 % (42.0-52.0); Hemoglobin 13.4 g/dL (14.0-18.0); Mean Corpuscular HGB CONC 33.8 g/dL (32.0-36.0); Mean Corpuscular Hemoglobin 33.6 pg (27.0-31.0); Mean Corpuscular Volume 99.5 fL (78.0-98.0); Mean Platelet Volume 10.7 fL (7.4-10.4); Platelet Count 139 10x3/uL (130-400); RBC Distribution Width 13.1 % (11.5-14.5); Red Blood Cell (RBC) Count 3.99 mill/uL (4.70-6.10)
[2024-06-01] MEDS ORDERED: Ondansetron PF 4 MG/2 ML Vial ONE (08:17)
[2024-06-01] MEDS ORDERED: Morphine 4 MG/ML VIAL ONE ×2 (08:17→12:07)
[2024-06-01 08:23] LABS: ALT (SGPT) 11 U/L (8-55); AST (SGOT) 22 U/L (5-34); Albumin 3.3 g/dL (3.4-4.8); Alkaline Phosphatase 51 U/L (40-110); Anion Gap 13 mmol/L (10-20); BUN (Urea Nitrogen) 9 mg/dL (8.4-25.7); Bilirubin, Total 1.4 mg/dL (0.2-1.2); Calc. Creatinine Clearance 0 mL/min (70-130); Calcium 8.9 mg/dL (7.8-10.44); Carbon Dioxide 22 mmol/L (23-31); Chloride 109 mmol/L (98-107); Estimated GFR 99; Glucose 98 mg/dL (83-110); Potassium 3.6 mmol/L (3.5-5.1); Protein, Total 6.3 g/dL (5.8-8.1); Sodium 140 mmol/L (136-145)
== END 2024-06-01 15:59 | disposition home or self-care (01) ==
LOC: ERS 07:04
DX: T84.031A Mechanical loosening of internal left hip prosthetic joint, initial encounter (principal); F17.220 Nicotine dependence, chewing tobacco, uncomplicated
CPT/HCPCS: 72192; 80053; 83605; 85025; 86141; 87040; 96374; 96375; 96376; J2272; J2405